=== PATIENT | male | born 1980 | race American Indian/Alaskan Native ===

== ENCOUNTER 2019-02-21 08:29 | Emergency (ER) | payer OTHER ==
--- NOTE | 2019-02-21 10:35 | XRay Report ---
PROCEDURE: XR CHEST ROUTINE 2V TECHNIQUE: Chest, 2 views HISTORY: Chest Pain COMPARISON: None FINDINGS: The heart size is normal. There is no pulmonary vascular congestion seen. Mediastinal contours are normal. Lungs are clear. There is no pleural effusion seen. There is no pneumothorax seen. IMPRESSION: No acute abnormality identified. This document is electronically signed by Rashida Patricia MD., Feb 21 2019 10:33:53 AM ET
[2019-02-21 10:46] LABS: Alanine Aminotransferase 33 units/L (7-56); Albumin 4.3 g/dL (3.9-5); BUN/Creatinine Ratio 6; Basophils # (Auto) 0.1 K/mm3 (0.0-0.1); Basophils % (Auto) 1.1 % (0.0-1.8); Blood Urea Nitrogen 7 mg/dL (9-20); Calcium 8.9 mg/dL (8.4-10.2); Eosinophils # (Auto) 0.1 K/mm3 (0.0-0.4); Eosinophils % (Auto) 2.3 % (0.0-4.3); Hematocrit 43.9 % (35.5-45.6); Hemoglobin 14.7 gm/dl (11.8-15.2); Hemolysis Index 15; Lymphocytes # (Auto) 1.5 K/mm3 (1.2-5.4); Lymphocytes % (Auto) 30.4 % (13.4-35.0); Mean Corpuscular HGB Conc 33 % (32-34); Mean Corpuscular Volume 88 fl (84-94); Monocytes # (Auto) 0.7 K/mm3 (0.0-0.8); Monocytes % (Auto) 14.8 % (0.0-7.3); Platelet Count 209 K/mm3 (140-440)
[2019-02-21 10:57] LABS: INR 0.92 (0.87-1.13)
--- NOTE | 2019-02-21 11:20 | Emergency Department Report ---
ED Chest Pain HPI - General Chief Complaint: Chest Pain Stated Complaint: CHEST PAIN/RT AXLE NUMBNESS/JILL Time Seen by Provider: 02/21/19 10:49 Source: patient Mode of arrival: Ambulatory Limitations: No Limitations - History of Present Illness Initial Comments: She is a 38-year-old male with a history of high blood pressure presents to the ED complaining of Ms. sternal chest pain for the past 3 days with some right pain. Patient states that pain is a squeezing type pain in the middle of his chest. Patient states the pain is localized to his mid chest region with no radiation elsewhere. Patient states is intermittent throughout the day for the past 3 days. She denies any falls, trauma, or any injuries. MD Complaint: chest pain Pain Location: substernal Severity: mild Severity scale (0 -10): 9 - Related Data Previous Rx's Medication Instructions Recorded Last Taken Type Azithromycin [Zithromax Z-WEN] 250 mg PO DAILY #6 tab 10/22/13 Unknown Rx HYDROcodone/APAP 10-325 [[place] 1 each PO Q4-6H PRN #12 tablet 09/09/14 Unknown Rx 10-325 mg TAB] Ondansetron [Zofran Odt] 4 mg SL Q6H PRN #8 tab.rapdis 09/09/14 Unknown Rx HYDROcodone/APAP 10-325 [[place] 1 each PO Q6HR PRN #16 tablet 05/10/15 Unknown Rx 10/325] predniSONE [Deltasone] 20 mg PO TID #15 tab 05/10/15 Unknown Rx Naproxen [Naprosyn] 500 mg PO BID #20 tablet 02/21/19 Unknown Rx amLODIPine [Norvasc] 5 mg PO DAILY #30 tab 02/21/19 Unknown Rx Allergies Allergy/AdvReac Type Severity Reaction Status Date / Time No Known Allergies Allergy Verified 10/22/13 08:21 Heart Score - HEART Score History: Slightly suspicious EKG: Normal Age: < 45 Risk factors: No known risk factors Troponin: < normal limit HEART Score: 0 ED Review of Systems ROS: Stated complaint: CHEST PAIN/RT AXLE NUMBNESS/JILL Other details as noted in HPI Comment: All other systems reviewed and negative ED Past Medical Hx - Past Medical History Hx Hypertension: Yes (not taking any anti-hypertensives) - Surgical History Additional Surgical History: Right foot /toe surgery - Social History Smoking Status: Never Smoker Substance Use Type: None - Medications Home Medications: Home Medications Medication Instructions Recorded Confirmed Last Taken Type Azithromycin [Zithromax Z-WEN] 250 mg PO DAILY #6 tab 10/22/13 Unknown Rx HYDROcodone/APAP 10-325 [[place] 1 each PO Q4-6H PRN #12 tablet 09/09/14 Unknown Rx 10-325 mg TAB] Ondansetron [Zofran Odt] 4 mg SL Q6H PRN #8 tab.rapdis 09/09/14 Unknown Rx HYDROcodone/APAP 10-325 [[place] 1 each PO Q6HR PRN #16 tablet 05/10/15 Unknown Rx 10/325] predniSONE [Deltasone] 20 mg PO TID #15 tab 05/10/15 Unknown Rx Naproxen [Naprosyn] 500 mg PO BID #20 tablet 02/21/19 Unknown Rx amLODIPine [Norvasc] 5 mg PO DAILY #30 tab 02/21/19 Unknown Rx ED Physical Exam - General Limitations: No Limitations General appearance: alert, in no apparent distress - Head Head exam: Present: atraumatic, normocephalic - Eye Eye exam: Present: normal appearance - ENT ENT exam: Present: mucous membranes moist - Neck Neck exam: Present: normal inspection, full ROM. Absent: tenderness, lymphadenopathy - Respiratory Respiratory exam: Present: normal lung sounds bilaterally. Absent: respiratory distress, wheezes, rales, chest wall tenderness, accessory muscle use - Cardiovascular Cardiovascular Exam: Present: regular rate, normal rhythm. Absent: systolic murmur, diastolic murmur, rubs, gallop - GI/Abdominal GI/Abdominal exam: Present: soft, normal bowel sounds. Absent: distended - Rectal Rectal exam: Present: deferred - Extremities Exam Extremities exam: Present: normal inspection - Back Exam Back exam: Present: normal inspection - Neurological Exam Neurological exam: Present: alert, oriented X3 - Psychiatric Psychiatric exam: Present: normal affect, normal mood - Skin Skin exam: Present: warm, dry, intact, normal color. Absent: rash ED Course Vital Signs 02/21/19 02/21/19 08:53 11:48 Temperature 97.9 F 97.9 F Pulse Rate 79 68 Respiratory 20 18 Rate Blood Pressure 149/100 [Left] Blood Pressure 157/108 [Right] O2 Sat by Pulse 99 99 Oximetry MARC score - Marc Score Age > 65: (0) No 3 or more CAD Risk Factors: (0) No 2 or more Angina events in past 24 hrs: (0) No Known CAD with more than 50% Stenosis: (0) No Elevated Cardiac Markers: (0) No ST Deviation Greater than 0.5mm: (0) No ED Medical Decision Making - Lab Data Result diagrams: 02/21/19 09:58 02/21/19 09:58 - Radiology Data Radiology results: report reviewed, image reviewed CHNIQUE: Chest, 2 views HISTORY: Chest Pain COMPARISON: None FINDINGS: The heart size is normal. There is no pulmonary vascular congestion seen. Mediastinal contours are normal. Lungs are clear. There is no pleural effusion seen. There is no pneumothorax seen. IMPRESSION: No acute abnormality identified. This document is electronically signed by Rashida Valdez MD., Feb 21 2019 10:33:53 AM ET Transcribed By: MARTA Dictated By: RASHIDA VALDEZ MD Electronically Authenticated By: RASHIDA VALDEZ MD Signed Date/Time: 02/21/19 1035 - Medical Decision Making There is 38-year-old male presented costochondral chest pain. All loss within normal limits, chest x-ray negative. Discussed his findings with the patient. Discussed with patient to follow up with his primary care physician. Vital signs are normal patient is in no acute distress or respiratory distress. Critical care attestation.: If time is entered above; I have spent that time in minutes in the direct care of this critically ill patient, excluding procedure time. ED Disposition Clinical Impression: Atypical chest pain Disposition: DC-01 TO HOME OR SELFCARE Is pt being admited?: No Does the pt Need Aspirin: No Condition: Stable Instructions: Chest Pain (ED), Costochondritis (ED) Additional Instructions: Make sure to follow up with the primary care physician as discussed. Take all your medications as you've been prescribed. If you have any worsening symptoms or develop new symptoms please return to ED immediately. Prescriptions: Naproxen [Naprosyn] 500 mg PO BID #20 tablet amLODIPine [Norvasc] 5 mg PO DAILY #30 tab Referrals: JESÚS GAMINGNEW BERLIN MD SEDA [Primary Care Provider] - 3-5 Days ESTRELLA OLIVO MD [Staff Physician] - 3-5 Days Forms: Work/School Release Form(ED) Time of Disposition: 11:30
[2019-02-21] MEDS ORDERED: IBUPROFEN PO ONE (11:30)
[2019-02-21 11:49] VITALS: BP 149/100
== END 2019-02-21 11:48 | disposition home or self-care (01) ==
LOC: ED 08:29
DX: R07.89 Other chest pain (principal); I10 Essential (primary) hypertension; Z79.899 Other long term (current) drug therapy
CPT/HCPCS: 36415; 71046; 80053; 84484; 85025; 85610; 93005; 93010

== ENCOUNTER 2019-09-21 15:58 | Emergency (ER) | payer SELFPAY ==
--- NOTE | 2019-09-21 16:33 | Emergency Department Report ---
Blank Doc - Documentation Documentation: 39-year-old male that presents with chest pain, SOB, and headache. Uncontrolled HTN in the ED. New acute headache. This initial assessment/diagnostic orders/clinical plan/treatment(s) is/are subject to change based on patient's health status, clinical progression and re-assessment by fellow clinical providers in the ED. Further treatment and workup at subsequent clinical providers discretion. Patient/guardians urged not to elope from the ED as their condition may be serious if not clinically assessed and managed. Initial orders include: 1- Patient sent to [facility] for further evaluation and treatment 2- CT head 3- labs 4- EKG
--- NOTE | 2019-09-21 17:01 | XRay Report ---
CHEST 2 VIEWS INDICATION / CLINICAL INFORMATION: cp. Chest pain COMPARISON: None available. FINDINGS: SUPPORT DEVICES: None. HEART / MEDIASTINUM: No significant abnormality. LUNGS / PLEURA: No significant pulmonary or pleural abnormality. No pneumothorax. ADDITIONAL FINDINGS: No significant additional findings. IMPRESSION: 1. No acute findings. Signer Name: Peter Arrington MD Signed: 09/21/2019 4:56 PM Workstation Name: [email or web address]
[2019-09-21 17:29] LABS: Basophils # (Auto) 0.1 K/mm3 (0.0-0.1); Basophils % (Auto) 0.9 % (0.0-1.8); Eosinophils # (Auto) 0.1 K/mm3 (0.0-0.4); Eosinophils % (Auto) 2.2 % (0.0-4.3); Hematocrit 44.8 % (35.5-45.6); Hemoglobin 14.9 gm/dl (11.8-15.2); Lymphocytes % (Auto) 33.4 % (13.4-35.0); Mean Corpuscular HGB Conc 33 % (32-34); Mean Corpuscular Volume 87 fl (84-94); Monocytes # (Auto) 0.5 K/mm3 (0.0-0.8); Platelet Count 261 K/mm3 (140-440); Red Blood Count 5.13 M/mm3 (3.65-5.03); Red Cell Distribution Width 13.2 % (13.2-15.2)
[2019-09-21 17:35] LABS: BUN/Creatinine Ratio 12; Blood Urea Nitrogen 13 mg/dL (9-20); Calcium 9.6 mg/dL (8.4-10.2); Hemolysis Index 13
[2019-09-21] MEDS ORDERED: ASPIRIN 81 MG TAB CHEW PO ONE (18:42)
[2019-09-21] MEDS ORDERED: BUTALB/ACETAMINOPHEN/CAFFEINE TAB PO ONE (18:42)
[2019-09-21 18:47] LABS: Bilirubin,Urine NEG (Negative); Blood,Urine NEG (Negative); Color,Urine Yellow (Yellow); Mucus,Urine FEW /HPF; Protein,Urine <15 mg/dL mg/dL (Negative); Urobilinogen,Urine < 2.0 mg/dL (<2.0); WBC,Urine < 1.0 /HPF (0.0-6.0)
--- NOTE | 2019-09-21 19:25 | Cat Scan Report ---
CT head/brain wo con INDICATION / CLINICAL INFORMATION: 39 years Male; headache. TECHNIQUE: Routine CT head without contrast. All CT scans at this location are performed using CT dos e reduction for ALARA by means of automated exposure control. COMPARISON: The study is compared to the previous CT of 05/10/2015. FINDINGS: BRAIN / INTRACRANIAL CONTENTS: The brain demonstrate appropriate attenuation without significant inte rval change from 05/10/2015. The ventricular system remains appropriate in size and configuration. The re is no CT evidence of acute intracranial hemorrhage or significant mass effect. ORBITS: No significant abnormality of visualized orbits. SINUSES / MASTOIDS: No significant abnormality the visualized paranasal sinuses or mastoid air cells. CRANIOCERVICAL JUNCTION: No significant abnormality. ADDITIONAL FINDINGS: None. IMPRESSION: 1. There is no CT evidence of acute intracranial process. Signer Name: Reese Cortez MD Signed: 09/21/2019 7:21 PM Workstation Name: [id number]
--- NOTE | 2019-09-21 20:51 | Emergency Department Report ---
ED General Adult HPI - General Chief complaint: Dyspnea/Respdistress Stated complaint: SOB/CHEST PAIN/HEADACHE Time Seen by Provider: 09/21/19 16:31 Source: patient Mode of arrival: Ambulatory Limitations: No Limitations - History of Present Illness Initial comments: Patient is a 39-year-old -[place] male with a history of hypertension and is noncompliant with these medications presents to the ED with persistent severe headache, elevated blood pressure and chest tightness for the last 1 month intermittently. Patient states that in the last 12 hours, the headache has been worse accompanied by nausea and vomiting and chest tightness and ramos rtness of breath. Patient denies fever, chills, dizziness, syncope, palpitations, sore throat, abdominal pain, numbness and tingling or weakness of upper and lower extremities bilaterally, change in vision, cough or seizures. MD Complaint: Headache, lightheadedness; chest tightness, dyspnea, uncontrolled HTN -: Gradual, month(s) (1) Location: head, chest Radiation: non-radiation Severity scale (0 -10): 8 Quality: aching, sharp Consistency: intermittent Improves with: none Worsens with: none Associated Symptoms: denies other symptoms, chest pain, headaches, loss of appetite, malaise, shortness of breath. denies: confusion, cough, diaphoresis, fever/chills, nausea/vomiting, rash, seizure, syncope, weakness, other Treatments Prior to Arrival: none - Related Data Previous Rx's Medication Instructions Recorded Last Taken Type Azithromycin [Zithromax Z-WEN] 250 mg PO DAILY #6 tab 10/22/13 Unknown Rx HYDROcodone/APAP 10-325 [[place] 1 each PO Q4-6H PRN #12 tablet 09/09/14 Unknown Rx 10-325 mg TAB] Ondansetron [Zofran Odt] 4 mg SL Q6H PRN #8 tab.rapdis 09/09/14 Unknown Rx HYDROcodone/APAP 10-325 [[place] 1 each PO Q6HR PRN #16 tablet 05/10/15 Unknown Rx 10/325] predniSONE [Deltasone] 20 mg PO TID #15 tab 05/10/15 Unknown Rx Naproxen [Naprosyn] 500 mg PO BID #20 tablet 02/21/19 Unknown Rx amLODIPine 5 mg PO DAILY #30 tab 02/21/19 Unknown Rx Butalb/Acetamin/Caff 50-325-40 1 - 2 tab PO Q6HR PRN #12 tab 09/21/19 Unknown Rx [Fioricet 50-325-40] Ibuprofen [Motrin] 800 mg PO Q8HR PRN #24 tablet 09/21/19 Unknown Rx amLODIPine 10 mg PO DAILY #30 tab 09/21/19 Unknown Rx Allergies Allergy/AdvReac Type Severity Reaction Status Date / Time No Known Allergies Allergy Verified 10/22/13 08:21 ED Review of Systems ROS: Stated complaint: SOB/CHEST PAIN/HEADACHE Other details as noted in HPI Constitutional: denies: chills, fever Eyes: denies: eye pain, eye discharge, vision change ENT: denies: ear pain, throat pain Respiratory: shortness of breath. denies: cough, wheezing Cardiovascular: chest pain. denies: palpitations Endocrine: no symptoms reported Gastrointestinal: denies: abdominal pain, nausea, vomiting, diarrhea Genitourinary: denies: urgency, dysuria Musculoskeletal: denies: back pain, joint swelling, arthralgia Skin: denies: rash, lesions Neurological: headache. denies: weakness, paresthesias Psychiatric: denies: anxiety, depression Hematological/Lymphatic: denies: easy bleeding, easy bruising ED Past Medical Hx - Past Medical History Previous Medical History?: Yes Hx Hypertension: Yes (not taking any anti-hypertensives) - Surgical History Past Surgical History?: Yes Additional Surgical History: Right foot /toe surgery - Social History Smoking Status: Never Smoker Substance Use Type: None - Medications Home Medications: Home Medications Medication Instructions Recorded Confirmed Last Taken Type Azithromycin [Zithromax Z-WEN] 250 mg PO DAILY #6 tab 10/22/13 Unknown Rx HYDROcodone/APAP 10-325 [[place] 1 each PO Q4-6H PRN #12 tablet 09/09/14 Unknown Rx 10-325 mg TAB] Ondansetron [Zofran Odt] 4 mg SL Q6H PRN #8 tab.rapdis 09/09/14 Unknown Rx HYDROcodone/APAP 10-325 [[place] 1 each PO Q6HR PRN #16 tablet 05/10/15 Unknown Rx 10/325] predniSONE [Deltasone] 20 mg PO TID #15 tab 05/10/15 Unknown Rx Naproxen [Naprosyn] 500 mg PO BID #20 tablet 02/21/19 Unknown Rx amLODIPine 5 mg PO DAILY #30 tab 02/21/19 Unknown Rx Butalb/Acetamin/Caff 50-325-40 1 - 2 tab PO Q6HR PRN #12 tab 09/21/19 Unknown Rx [Fioricet 50-325-40] Ibuprofen [Motrin] 800 mg PO Q8HR PRN #24 tablet 09/21/19 Unknown Rx amLODIPine 10 mg PO DAILY #30 tab 09/21/19 Unknown Rx ED Physical Exam - General Limitations: No Limitations General appearance: alert, in no apparent distress - Head Head exam: Present: atraumatic, normocephalic, normal inspection - Eye Eye exam: Present: normal appearance, PERRL, EOMI Pupils: Present: normal accommodation - ENT ENT exam: Present: normal exam, normal orophraynx, mucous membranes moist, TM's normal bilaterally, normal external ear exam - Neck Neck exam: Present: normal inspection, full ROM - Respiratory Respiratory exam: Present: normal lung sounds bilaterally. Absent: respiratory distress, wheezes, rales, rhonchi, chest wall tenderness, accessory muscle use, decreased breath sounds, prolonged expiratory - Cardiovascular Cardiovascular Exam: Present: normal rhythm, tachycardia, normal heart sounds. Absent: systolic murmur, diastolic murmur, rubs, gallop - GI/Abdominal GI/Abdominal exam: Present: soft, normal bowel sounds. Absent: tenderness, guarding, rebound, hypoactive bowel sounds - Rectal Rectal exam: Present: deferred - Extremities Exam Extremities exam: Present: normal inspection, full ROM, normal capillary refill - Back Exam Back exam: Present: normal inspection, full ROM. Absent: tenderness, CVA tenderness (R), CVA tenderness (L), muscle spasm, paraspinal tenderness, vertebral tenderness - Neurological Exam Neurological exam: Present: alert, oriented X3, CN II-XII intact, normal gait, reflexes normal - Psychiatric Psychiatric exam: Present: normal affect, normal mood - Skin Skin exam: Present: warm, dry, intact, normal color. Absent: rash ED Course Vital Signs 09/21/19 09/21/19 16:31 18:47 Temperature 97.8 F Pulse Rate 105 H Respiratory 18 Rate Blood Pressure 163/103 Blood Pressure 138/94 [Right] O2 Sat by Pulse 100 Oximetry ED Medical Decision Making - Lab Data Result diagrams: 09/21/19 16:58 09/21/19 16:58 - EKG Data EKG shows normal: sinus rhythm Rate: normal - EKG Data Interpretation: normal EKG 09/21/19 21:21 EKG shows normal sinus rhythm with ventricular rate of 86 minute, no ST or T- wave abnormalities. - Radiology Data Radiology results: report reviewed, image reviewed Findings [facility] [address] [place] [address] Cat Scan Report Signed Patient: KENDELL JUSTICE JR MR#: [id number] : 1980 Acct:[id number] Age/Sex: 39 / M ADM Date: 09/21/19 Loc: ED Attending Dr: Ordering Physician: RONNY HERNANDEZ NP Date of Service: 09/21/19 Procedure(s): CT head/brain wo con Accession Number(s): [id number] cc: RONNY HERNANDEZ NP CT head/brain wo con INDICATION / CLINICAL INFORMATION: 39 years Male; headache. TECHNIQUE: Routine CT head without contrast. All CT scans at this location are performed using CT dose reduction for ALARA by means of automated exposure control. COMPARISON: The study is compared to the previous CT of 05/10/2015. FINDINGS: BRAIN / INTRACRANIAL CONTENTS: The brain demonstrate appropriate attenuation without significant interval change from 05/10/2015. The ventricular system remains appropriate in size and configuration. There is no CT evidence of acute intracranial hemorrhage or significant mass effect. ORBITS: No significant abnormality of visualized orbits. SINUSES / MASTOIDS: No significant abnormality the visualized paranasal sinuses or mastoid air cells. CRANIOCERVICAL JUNCTION: No significant abnormality. ADDITIONAL FINDINGS: None. IMPRESSION: 1. There is no CT evidence of acute intracranial process. Signer Name: Reese Cortez MD Signed: 09/21/2019 7:21 PM Workstation Name: [id number] Transcribed By: MR Dictated By: Reese Cortez MD Electronically Authenticated By: Reese Cortez MD Signed Date/Time: 09/21/191920 DD/ 17 TD/TT: Findings [facility] [address] [place] [address] XRay Report Signed Patient: KENDELL JUSTICE JR MR#: [id number] : 1980 Acct:[id number] Age/Sex: 39 / M ADM Date: 09/21/19 Loc: ED Attending Dr: Ordering Physician: RONNY HERNANDEZ NP Date of Service: 09/21/19 Procedure(s): XR chest routine 2V Accession Number(s): [id number] cc: RONNY HERNANDEZ NP Fluoro Time In Minutes: CHEST 2 VIEWS INDICATION / CLINICAL INFORMATION: cp. Chest pain COMPARISON: None available. FINDINGS: SUPPORT DEVICES: None. HEART / MEDIASTINUM: No significant abnormality. LUNGS / PLEURA: No significant pulmonary or pleural abnormality. No pneumothorax. ADDITIONAL FINDINGS: No significant additional findings. IMPRESSION: 1. No acute findings. Signer Name: Peter Arrington MD Signed: 09/21/2019 4:56 PM Workstation Name: [id number] Transcribed By: BC Dictated By: Peter Arrington MD Electronically Authenticated By: Peter Arrington MD Signed Date/Time: 09/21/191655 DD/ 55 TD/TT: - Medical Decision Making This is a 39-year-old -[place] male with a history of hypertension who presented to the ED with persistent headache, elevated blood pressure, chest pain and shortness of breath for 1 month intermittently. Patient admitted to no taking his blood pressure medications after he ran out about a month ago. In the ED, patient is alert and oriented 3 and is not in distress, but tachycardic in triage and hypertensive. EKG shows normal sinus rhythm with ventricular rate of [address] or T-wave abnormalities. Chest x-ray shows no acute cardiopulmonary abnormalities or pneumonitis. Lab test results were reviewed a nd are on nonactionable including initial and repeat troponin levels. Head CT scan without contrast shows no acute intracranial abnormalities or hemorrhage. The patient's heart score is 1 based on the patient's history of hypertension. The vital signs were rechecked and the patient blood pressure normalized. On reevaluation, patient felt better and was discharged home on a renewed prescription of Norvasc 10 mg daily and was referred to the [facility] for further evaluation and to establish care. Patient was advised to return to the ED immediately if symptoms get worse. - Differential Diagnosis Nonspecific chest pain; Anxiety; Uncontrolled HTN; Headache Critical care attestation.: If time is entered above; I have spent that time in minutes in the direct care of this critically ill patient, excluding procedure time. ED Disposition Clinical Impression: Nonspecific chest pain, Uncontrolled stage 2 hypertension Acute tension headache Qualifiers: Intractability: not intractable Qualified Code(s): G44.209 - Tension-type headache, unspecified, not intractable Disposition: DC- TO HOME OR SELFCARE Is pt being admited?: No Does the pt Need Aspirin: No Condition: Stable Instructions: Chest Pain (ED), Hypertension (ED) Additional Instructions: Take blood pressure medications as indicated, follow-up with the primary care physician as advised. Return to the ED immediately if symptoms get worse. Prescriptions: amLODIPine 10 mg PO DAILY #30 tab Butalb/Acetamin/Caff 50-325-40 [Fioricet 50-325-40] 1 - 2 tab PO Q6HR PRN #12 tab PRN Reason: Headache Ibuprofen [Motrin] 800 mg PO Q8HR PRN #24 tablet PRN Reason: Pain , Severe (7-10) Referrals: KASI DOLAN MD [Staff Physician] - 7-10 days Forms: Work/School Release Form(ED) Time of Disposition: 20:48 Print Language: PORTUGUESE
[2019-09-21 21:15] VITALS: BP 132/98
== END 2019-09-21 21:22 | disposition home or self-care (01) ==
LOC: ED 15:58
DX: G44.209 Tension-type headache, unspecified, not intractable (principal); R07.89 Other chest pain; I10 Essential (primary) hypertension; Z98.890 Other specified postprocedural states; Z79.899 Other long term (current) drug therapy
CPT/HCPCS: 36415; 70450; 71046; 80048; 81001; 84484; 85025; 93005; 93010